=== PATIENT | female | born 1985 | race Hispanic/Latino ===

== ENCOUNTER 2020-01-16 18:13 | Emergency (ER) | payer OTHER, SELFPAY ==
--- NOTE | 2020-01-16 19:37 | EDPHYS ---
Physician Documentation [facility] Name: Trice Blair Age: 34 yrs Sex: Female : 1985 Arrival Date: 01/16/2020 Time: 18:15 Bed 18 Private MD: ED Physician Jadon Mendez HPI: 01/15 19:34 This 34 yrs old Female presents to ER via Ambulatory with complaints of pm1 Toothache. 19:34 The patient presents with pain. The problem is located in the lower left third molar. pm1 19:34 Onset: The symptoms/episode began/occurred 3 day(s) ago. Duration: The symptoms are pm1 continuous. Modifying factors: The symptoms are alleviated by nothing, the symptoms are aggravated by food. Associated signs and symptoms: Pertinent negatives: fever, inability to eat, nausea, vomiting. Severity of symptoms: in the emergency department the symptoms are actually worse. The patient has experienced similar episodes in the past, chronically. The patient has not recently seen a physician, Patient is waiting for her dental insurance to kick in February of next year. Historical: - Allergies: 18:41 No Known Allergies; ll1 - PMHx: 18:41 None; ll1 - PSHx: 18:41 None; ll1 - Immunization history:: Flu vaccine is not up to date. - Social history:: Smoking status: Patient reports the use of cigarette tobacco products, denies chronic smoking, but will smoke occasionally. ROS: 19:34 Constitutional: Negative for fever, chills, and weight loss. pm1 19:34 Cardiovascular: Negative for chest pain, palpitations, and edema, Respiratory: Negative for shortness of breath, cough, wheezing, and pleuritic chest pain, Abdomen/GI: Negative for abdominal pain, nausea, vomiting, diarrhea, and constipation, Skin: Negative for injury, rash, and discoloration, Neuro: Negative for headache, weakness, numbness, tingling, and seizure. 19:34 ENT: Positive for dental pain, Negative for sore throat, difficulty swallowing, difficulty handling secretions. Exam: 19:34 Constitutional: This is a well developed, well nourished patient who is awake, alert, pm1 and in no acute distress. Head/Face: Normocephalic, atraumatic. 19:34 Skin: Warm, dry with normal turgor. Normal color with no rashes, no lesions, and no evidence of cellulitis. MS/ Extremity: Pulses equal, no cyanosis. Neurovascular intact. Full, normal range of motion. 19:34 ENT: Dental exam: dental caries, specifically in the upper left third molar (#16), lower left third molar (#17) and lower right third molar (#32), negative for trismus. 19:34 Cardiovascular: Exam negative for acute changes, Rate: normal, Rhythm: regular, Pulses: no pulse deficits are appreciated. 19:34 Respiratory: Exam negative for acute changes, respiratory distress, shortness of breath. 19:34 Neuro: Exam negative for acute changes, Orientation: is normal, Mentation: is normal, Motor: is normal, moves all fours. Vital Signs: 18:37 BP 182 / 101; Pulse 60; Resp 17; Temp 98.8; Pulse Ox 100% ; Weight 68.04 kg; Height 5 ll1 ft. 2 in. (157.48 cm); Pain 10/10; 19:45 BP 133 / 75; Pulse 68; Resp 16; Pulse Ox 98% on R/A; jb4 18:37 Body Mass Index 27.44 (68.04 kg, 157.48 cm) ll1 MDM: 19:24 Patient medically screened. pm1 19:34 Data reviewed: vital signs. Data interpreted: Pulse oximetry: on room air is 100 %. pm1 Interpretation: normal. Counseling: I had a detailed discussion with the patient and/or guardian regarding: the historical points, exam findings, and any diagnostic results supporting the discharge/admit diagnosis, the need for outpatient follow up, for definitive care, a dentist, to return to the emergency department if symptoms worsen or persist or if there are any questions or concerns that arise at home. 19:44 ED course: [place] reviewed. pm1 19:46 ED course: Patient took 1500 Tylenol prior to arrival for her pain. Therefore could pm1 give her [place] in the ER and she refused tramadol due to nausea with medication. Will give the patient IM pain medication prior to discharge. Administered Medications: 19:42 CANCELLED (Physician Discretion): [place] 10 mg-325 mg 1 tabs PO once; RASS on ADMIN: pm1 Combtv4, Very Agttd3, Agttd2, Rstlss1, AlertClm0, Drwsy-1, Lt Sdtn-2, Mod Sdtn-3, Dp Sdtn-4, UnArsble-5 19:47 Not Given (Patient Refused): traMADol 50 mg PO once; RASS on ADMIN: Combtv4, Very jb4 Agttd3, Agttd2, Rstlss1, AlertClm0, Drwsy-1, Lt Sdtn-2, Mod Sdtn-3, Dp Sdtn-4, UnArsble-5 19:59 Drug: morphine 4 mg Route: IM; Site: right deltoid; jb4 19:59 Follow up: Response: No adverse reaction; Medication administered at discharge. jb4 Disposition: 01/16 06:01 Co-signature as Attending Physician, Jadon Mendez MD. mh7 Disposition: 01/16/20 19:35 Discharged to Home. Impression: Other specified disorders of teeth and supporting structures - dental caries and dental pain. - Condition is Stable. - Discharge Instructions: Dental Caries, Adult, Dental Pain. - Prescriptions for Amoxicillin 500 mg Oral Capsule - take 1 capsule by ORAL route every 8 hours for 10 days; 30 tablet. Tylenol- Codeine #3 300-30 mg Oral Tablet - take 2 tablets by ORAL route every 6 hours As needed; 20 tablet. - Medication Reconciliation Form, Thank You Letter, Antibiotic Education, Prescription Opioid Use form. - Follow up: Emergency Department; When: As needed; Reason: Worsening of condition. Follow up: Private Physician; When: 2 - 3 days; Reason: Recheck today's complaints, Continuance of care, Re-evaluation by your physician. - Problem is new. - Symptoms have improved. Signatures: Chaparro Hunter, BRUCE CERTIFIED MEDICATION TECHNICIAN pm1 Carmelo Harper RN RN jb4 Uzma Ceballos RN RN ll1 Jadon Mendez MD MD mh7 Corrections: (The following items were deleted from the chart) 01/15 19:38 19:35 01/16/2020 19:35 Discharged to Home. Impression: Other specified disorders of pm1 teeth and supporting structures - dental decay and dental pain. Condition is Stable. Forms are Medication Reconciliation Form, Thank You Letter, Antibiotic Education, Prescription Opioid Use. Follow up: Emergency Department; When: As needed; Reason: Worsening of condition. Follow up: Private Physician; When: 2 - 3 days; Reason: Recheck today's complaints, Continuance of care, Re-evaluation by your physician. Problem is new. Symptoms have improved. pm1 19:42 19:34 [place] 10 mg-325 mg 1 tabs PO once; RASS on ADMIN: Combtv4, Very Agttd3, Agttd2, pm1 Rstlss1, AlertClm0, Drwsy-1, Lt Sdtn-2, Mod Sdtn-3, Dp Sdtn-4, UnArsble-5 ordered. pm1 20:02 19:38 01/16/2020 19:35 Discharged to Home. Impression: Other specified disorders of jb4 teeth and supporting structures - dental caries and dental pain. Condition is Stable. Discharge Instructions: Dental Caries, Adult, Dental Pain. Prescriptions for Amoxicillin 500 mg Oral Capsule - take 1 capsule by ORAL route every 8 hours for 10 days; 30 tablet, Tylenol-Codeine #3 300-30 mg Oral Tablet - take 2 tablets by ORAL route every 6 hours As needed; 20 tablet. and Forms are Medication Reconciliation Form, Thank You Letter, Antibiotic Education, Prescription Opioid Use. Follow up: Emergency Department; When: As needed; Reason: Worsening of condition. Follow up: Private Physician; When: 2 - 3 days; Reason: Recheck today's complaints, Continuance of care, Re-evaluation by your physician. Problem is new. Symptoms have improved. pm1
--- NOTE | 2020-01-16 19:37 | ER ---
Nurse's Notes [facility] Name: Trice Blair Age: 34 yrs Sex: Female : 1985 Arrival Date: 01/16/2020 Time: 18:15 Bed 18 Private MD: Diagnosis: Other specified disorders of teeth and supporting structures-dental caries and dental pain Presentation: 01/15 18:37 Chief complaint: Patient states: Left lower jaw tooth pain for 3 days[address] fever [address] [facility] home. Coronavirus screen: Client denies travel out of the [place] in the last 14 days. At this time, the client does not indicate any symptoms associated with coronavirus-19. Ebola Screen: Patient denies travel to an Ebola-affected area in the 21 days before illness onset. Initial Sepsis Screen: Does the patient meet any 2 criteria? No. Patient's initial sepsis screen is negative. Does the patient have a suspected source of infection? Yes: Other: dental pain. Risk Assessment: Do you want to hurt yourself or someone else? Patient reports no desire to harm self or others. Onset of symptoms was January 13, 2020. 18:37 Method Of Arrival: Ambulatory [facility] 18:37 Acuity: MIK 3 ll1 Historical: - Allergies: 18:41 No Known Allergies; ll1 - PMHx: 18:41 None; ll1 - PSHx: 18:41 None; ll1 - Immunization history:: Flu vaccine is not up to date. - Social history:: Smoking status: Patient reports the use of cigarette tobacco products, denies chronic smoking, but will smoke occasionally. Screenin:30 Abuse screen: Denies threats or abuse. Nutritional screening: No deficits noted. jb4 Tuberculosis screening: No symptoms or risk factors identified. Fall Risk None identified. Assessment: 19:25 General: Appears in no apparent distress. uncomfortable, Behavior is calm, cooperative, jb4 appropriate for age. Pain: Complains of pain in mouth Pain does not radiate. Pain currently is 7 out of 10 on a pain scale. Neuro: Level of Consciousness is awake, alert, obeys commands, Oriented to person, place, time, situation. Cardiovascular: Patient's skin is warm and dry. Respiratory: Airway is patent Respiratory effort is even, unlabored, Respiratory pattern is regular, symmetrical. GI: No signs and/or symptoms were reported involving the gastrointestinal system. : No signs and/or symptoms were reported regarding the genitourinary system. EENT: Reports pain in mouth. Derm: Skin is intact, Skin is pink, warm \T\ dry. Musculoskeletal: Circulation, motion, and sensation intact. Range of motion: intact in all extremities. 20:01 Reassessment: Patient appears in no apparent distress at this time. Patient and/or jb4 family updated on plan of care and expected duration. Pain level reassessed. Patient is alert, oriented x 3, equal unlabored respirations, skin warm/dry/pink. Vital Signs: 18:37 BP 182 / 101; Pulse 60; Resp 17; Temp 98.8; Pulse Ox 100% ; Weight 68.04 kg; Height 5 ll1 ft. 2 in. (157.48 cm); Pain 10/10; 19:45 BP 133 / 75; Pulse 68; Resp 16; Pulse Ox 98% on R/A; jb4 18:37 Body Mass Index 27.44 (68.04 kg, 157.48 cm) ll1 ED Course: 18:15 Patient arrived in ED. ds1 18:39 Triage completed. ll1 18:41 Arm band placed on. ll1 19:24 Carmelo Harper, RN is Primary Nurse. jb4 19:24 Jadon Mendez MD is Attending Physician. 7 19:24 Chaparro Hunter NP is PHCP. pm1 20:02 No provider procedures requiring assistance completed. Patient did not have IV access jb4 during this emergency room visit. Administered Medications: 19:42 CANCELLED (Physician Discretion): [place] 10 mg-325 mg 1 tabs PO once; RASS on ADMIN: pm1 Combtv4, Very Agttd3, Agttd2, Rstlss1, AlertClm0, Drwsy-1, Lt Sdtn-2, Mod Sdtn-3, Dp Sdtn-4, UnArsble-5 19:47 Not Given (Patient Refused): traMADol 50 mg PO once; RASS on ADMIN: Combtv4, Very jb4 Agttd3, Agttd2, Rstlss1, AlertClm0, Drwsy-1, Lt Sdtn-2, Mod Sdtn-3, Dp Sdtn-4, UnArsble-5 19:59 Drug: morphine 4 mg Route: IM; Site: right deltoid; jb4 19:59 Follow up: Response: No adverse reaction; Medication administered at discharge. jb4 Outcome: 19:35 Discharge ordered by . pm1 20:02 Discharged to home ambulatory, with family. jb4 20:02 Condition: stable 20:02 Discharge instructions given to patient, Instructed on discharge instructions, follow up and referral plans. medication usage, Demonstrated understanding of instructions, follow-up care, medications, Prescriptions given X 2. 20:02 Patient left the ED. jb4 Signatures: Anastasia Fortune ds1 Chaparro Hunter NP [employer]OW [employer]ING MACHINE TENDER pm1 Carmelo Harper RN RN jb4 Uzma Ceballos RN RN ll1 Jadon Mendez MD MD mh7 Corrections: (The following items were deleted from the chart) 19:16 18:37 Acuity: MIK 4 ll1 ll1 20:02 19:30 BP 133 / 75; Pulse 68bpm; Resp 16bpm; Pulse Ox 98% RA; jb4 jb4
[2020-01-16] MEDS ORDERED: TRAMADOL HCL 50 MG TAB ONE (19:57)
[2020-01-16] MEDS ORDERED: MORPHINE 4 MG/ML SYR ONE (20:06)
[2020-01-17 03:05] VITALS: TEMP 98.8
[2020-01-17 03:10] VITALS: BP 133/75; O2SAT 98
== END 2020-01-16 20:02 | disposition home or self-care (01) ==
LOC: ER 18:13
DX: K02.9 Dental caries, unspecified (principal); F17.210 Nicotine dependence, cigarettes, uncomplicated
CPT/HCPCS: 96372; 99283